=== PATIENT | female | born 1990 | race American Indian/Alaskan Native ===

== ENCOUNTER 2017-04-02 07:35 | Outpatient (CLI) | payer MEDICAID ==
[2017-04-02] MEDS ORDERED: LACTATED RINGERS 500 ML IV ONE ×2 (07:49→08:34)
[2017-04-02 07:50] VITALS: BP 119/75
[2017-04-02 08:08] LABS: Urine Drugs of Abuse Note Disclamer
[2017-04-02 08:23] LABS: Bacteria,Urine 1+ /HPF (Negative); Bilirubin,Urine NEG (Negative); Blood,Urine NEG (Negative); Ketones,Urine NEG (Negative); Leukocyte Esterase,Urine MOD (Negative); Mucus,Urine FEW /HPF; Nitrite,Urine NEG (Negative); Protein,Urine <15 mg/dL mg/dL (Negative)
[2017-04-02 08:58] LABS: Basophils % (Auto) 0.2 % (0.0-1.8); Eosinophils % (Auto) 0.4 % (0.0-4.3); Hematocrit 29.9 % (30.3-42.9); Hemoglobin 10.2 gm/dl (10.1-14.3); Mean Corpuscular HGB Conc 34 % (30-34); Mean Corpuscular Hemoglobin 30 pg (28-32); Mean Corpuscular Volume 88 fl (79-97); Platelet Count 230 K/mm3 (140-440); Red Cell Distribution Width 13.4 % (13.2-15.2); White Blood Count 9.3 K/mm3 (4.5-11.0)
== END 2017-04-02 09:40 | disposition home or self-care (01) ==
LOC: TRG 07:35
PROVIDERS: ATTEND Obstetrics & Gynecology
DX: O99.333 Smoking (tobacco) complicating pregnancy, third trimester (principal); O47.1 False labor at or after 37 completed weeks of gestation; Z3A.37 37 weeks gestation of pregnancy
CPT/HCPCS: 36415; 59025; 80307; 81001; 85025; 86850; 86900; 86901; 96360; J7120